=== PATIENT | female | born 1980 | race Caucasian/White ===

== ENCOUNTER 2021-02-08 08:04 | Day surgery (SDC) | payer OTHER ==
[~2021-02-08] VITALS: Ht 175.3 cm; Wt 150.0 kg
[~2021-02-08 08:04] MED LIST: ACYCLOVIR200 MG PO; ADIPEX-P37.5 MG PO; ARNUITY ELLIPT50 MCG IH; CELEBREX200 MG PO; CLARITIN10 M2 PO; DICLOFENAC SODI75 MG PO; DIFLUCAN150 MG PO; FEOSOL325 MG PO; LASIX20 MG PO; SIMETHICONE80 MG PO; VITAMIN C500 M5 PO
[2021-02-08] MEDS ORDERED: IBUPROFEN600 MG PO (08:35)
--- NOTE | 2021-02-08 09:41 | NUR ---
02/08/21 0941 Katiana Mai 8213 PT ARRIVED TO PACU TLAKING TO RN. PT DENIES CONCERNS. PT RESTING IN BED AND PLAN OF CARE DISCUSSED. VSS.
--- NOTE | 2021-02-09 08:15 | OR ---
[facility] [address] [place], [place] [address] Signed DATE OF OPERATION: 02/08/2021 SURGEON: Karen Chew MD PREOPERATIVE DIAGNOSES: 1. Gastroesophageal reflux disease. 2. Nausea. 3. Daily non-steroidal anti-inflammatory drugs use. 4. Maternal cousin with stomach cancer, age 32. 5. Sister with stomach cancer. POSTOPERATIVE DIAGNOSES: 1. Small antral gastric ulcer. 2. Moderate diffuse punctate hemorrhagic gastritis. 3. Small to moderate sized hiatal hernia. PROCEDURE: EGD with CLOtest and biopsies of the antrum and GE junction. ESTIMATED BLOOD LOSS: None. INDICATIONS: Elsie is a 40-year-old obese female, asked to see me for upper endoscopy. 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 She had to have some toe surgery and they apparently discontinued her job. She said it has been very stressful. It made her acid reflux worse and she is not having nausea and bloating. She is quite worried because her maternal cousin of stomach cancer at age 32. Apparently, there was a sister who also had stomach cancer. She seems to use the omeprazole as needed. She spoke of upper endoscopy way back at age 23. In the office, I gave her a pamphlet on upper endoscopy and we looked at that together along with the risks including, but not limited to gas bloating, crampy abdominal pain, bleeding, perforation requiring surgery, and missed diagnosis. She also understands the need for IV conscious sedation. She had expressed understanding and wished to proceed. PROCEDURE NOTE: Elsie was taken into our endoscopy suite and placed supine semi-recumbent position. The posterior oropharynx was anesthetized with lidocaine spray. A bite block was utilized for the case. She was given a total of 8 mg of Versed and 100 mcg of fentanyl to cover the case. The adult gastroscope had been introduced and advanced out into the Electronically Signed By: KAREN CHEW MD 02/09/21 0815 PATIENT NAME: ELSIE ZUNIGA OPERATIVE REPORT DATE OF : 76 REPORT #: [id number] PHYSICIAN: KAREN CHEW MD PCP: GAIL ARCHER REPORT IS CONFIDENTIAL AND NOT TO BE RELEASED WITHOUT AUTHORIZATION [facility] [address] [place], [place] [address] Signed third portion of the duodenum under direct visualization of camera without difficulty. The duodenum and pyloric channel were unremarkable. The stomach showed moderate diffuse hemorrhagic gastritis. She had a small ulcer in the antrum covered with fibrinous exudate. We took a biopsy right next to that for pathologic review. We took an additional biopsy out of the antrum for CLOtest. Upon retroflexion of scope, we can see she has a small to moderate sized hiatal hernia. We tried to measure that, but it was difficult and she started coughing. We had various measurements somewhere between 46 and 38 cm. Again, it does not appear that large visually. She does have some mild disruption to the Z-line. We went ahead and took a biopsy along the edge of that for pathologic review. No distal esophagitis. The middle and upper esophagus were unremarkable. After this, the gas was suctioned out and the gastroscope removed. Elsie tolerated the procedure quite well. RECOMMENDATIONS: Elsie should do her best to discontinue NSAIDs and aspirin for the next 6-8 weeks and use her omeprazole daily. Karen Chew MD [facility]/MODL /[id number] cc: [facility] Karen Chew MD Copies: KAREN CHEW MD ~ Electronically Signed By: KAREN CHEW MD 02/09/21 0815 PATIENT NAME: ELSIE ZUNIGA OPERATIVE REPORT DATE OF : 76 REPORT #: [id number] PHYSICIAN: KAREN CHEW MD PCP: GAIL ARCHER REPORT IS CONFIDENTIAL AND NOT TO BE RELEASED WITHOUT AUTHORIZATION
--- NOTE | 2021-02-10 16:25 | PATH ---
[facility] [address] [place], [place] [address] Signed SPECIMEN(S): A ANTRUM/PYLORUS SPECIMEN(S): B GE JUNCTION SPECIMEN SOURCE: A. ANTRUM/PYLORUS B. GE JUNCTION CLINICAL HISTORY: Reflux; nausea; bloating. Postop diagnosis: Hiatal hernia; small gastric ulcer MICROSCOPIC DESCRIPTION: Histologic sections of all submitted blocks are examined by light microscopy. Specimen A: An H. pylori immunohistochemical stain (with appropriately staining controls) is negative for Helicobacter organisms. These findings, together with the gross examination, support the pathologic diagnosis. FINAL PATHOLOGIC DIAGNOSIS: A. Stomach, antrum/pylorus, biopsy: - Antral mucosa with chronic, active gastritis. - Negative for Helicobacter organisms (HE and IHC). - Negative for dysplasia or malignancy. B. Gastroesophageal junction, biopsy: - Squamous mucosa with focal reactive changes associated with mixed acute and chronic inflammation, suggestive of reflux esophagitis. - Negative for intestinal metaplasia, dysplasia or malignancy. NAL:cml:C2NR GROSS DESCRIPTION: Two specimens are received in two containers, labeled "Blair" A. The specimen, labeled and designated "Trottier, antrum/pylorus biopsy," is received in formalin and consists of one corrigan soft tissue fragment that measures 0.2 cm in greatest dimension. The specimen is entirely submitted in cassette (A1). B. The specimen, labeled and designated "Trottier, GE junction biopsy," is received in formalin and consists of one corrigan soft tissue fragment that measures 0.2 cm in greatest dimension. The specimen is entirely submitted in cassette (B1). VB (under the direct supervision of a pathologist) The Gross Description was prepared using a voice recognition system. The report was reviewed for accuracy; however, sound-alike word errors, addition and/or deletions may occur. If there is any PATIENT NAME: NIKO ZUNIGA PATHOLOGY DATE OF : 76 REPORT #: [id number] PHYSICIAN: VAHE HUDSON PCP: GAIL ARCHER REPORT IS CONFIDENTIAL AND NOT TO BE RELEASED WITHOUT AUTHORIZATION [facility] [address] [place], [place] [address] Signed question about this report, please contact Client Services. PERFORMING LABORATORY: The technical component was performed by [employer] [address] [address] (Chemistry Professor: Avis Alexandre MD; CLIA# [id number]). Professional interpretation was performed by [employer] [facility], [address] [address] (CLIA# [id number]). Diagnostician: Elma Gillespie MD Pathologist Electronically Signed 02/10/2021 Copies: ~ PATIENT NAME: NIKO ZUNIGA PATHOLOGY DATE OF : 76 REPORT #: [id number] PHYSICIAN: VAHE PATHOLOGY PCP: GAIL ARCHER REPORT IS CONFIDENTIAL AND NOT TO BE RELEASED WITHOUT AUTHORIZATION
== END 2021-02-08 11:15 | disposition home or self-care (01) ==
LOC: OPS 08:04 → DS 08:13 → OPS 08:15
PROVIDERS: ATTEND Colon & Rectal Surgery
PROC: 0DB78ZX Excision of Stomach, Pylorus, Via Natural or Artificial Opening Endoscopic, Diagnostic (ICD-10-PCS; 2021-02-08)
PROC: 0DB48ZX Excision of Esophagogastric Junction, Via Natural or Artificial Opening Endoscopic, Diagnostic (ICD-10-PCS; principal; 2021-02-08 08:15)
DX: K29.51 Unspecified chronic gastritis with bleeding (principal); K21.9 Gastro-esophageal reflux disease without esophagitis; K25.9 Gastric ulcer, unspecified as acute or chronic, without hemorrhage or perforation; K44.9 Diaphragmatic hernia without obstruction or gangrene; E66.01 Morbid (severe) obesity due to excess calories; Z68.42 Body mass index [BMI] 45.0-49.9, adult; Z88.0 Allergy status to penicillin; Z88.5 Allergy status to narcotic agent; Z91.040 Latex allergy status
CPT/HCPCS: 84703; 86677; 99153; G0500; J2250; J3010; J7121

== ENCOUNTER 2021-11-04 10:37 | Emergency (ER) | payer OTHER ==
[~2021-11-04] VITALS: Ht 175.3 cm; Wt 149.7 kg
[~2021-11-04 10:37] MED LIST changes: +IBUPROFEN600 MG PO
--- OUTSIDE RECORDS SUMMARY | 2021-11-04 10:42 | XMS ---
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 Benjamin has no Care Guidelines for this patient. Jacklyn VISIT COUNT (12 MO.) 2 [facility] 1 SHARATH Israel TOTAL 3 NOTE: Visits indicate total known visits. ED/UCC VISIT TRACKING (12 MO.) 11/04/2021 10:39 SHARATH Patterson [place] TYPE: Emergency COMPLAINT: - URINATING BLOOD [facility] DIAGNOSES: - Vaginal Bleeding - Polyp of corpus uteri - Abnormal uterine and vaginal bleeding, unspecified - Anemia, unspecified - heavy menstural bleeding 01/12/2021 09:37 [facility] DIAGNOSES: - Abnormal uterine and vaginal bleeding, unspecified - Vaginal Bleeding - Polyp of corpus uteri - heavy menstral bleed INPATIENT VISIT TRACKING (12 MO.) No inpatient visits to display in this time frame [email or web address]
[2021-11-04] MEDS ORDERED: CEPHALEXIN500 MG PO (11:53)
[2021-11-04] MEDS ORDERED: DIFLUCAN200 MG PO (12:47)
== END 2021-11-04 14:23 | disposition home or self-care (01) ==
LOC: ED 10:37
DX: N39.0 Urinary tract infection, site not specified (principal); Z87.891 Personal history of nicotine dependence; Z88.5 Allergy status to narcotic agent; Z88.2 Allergy status to sulfonamides; Z91.040 Latex allergy status; Z79.899 Other long term (current) drug therapy
CPT/HCPCS: 36415; 80048; 81001; 85025; 96374; 96375; 99283-25; J0696; J2405; J7030

== ENCOUNTER 2024-05-15 06:50 | Day surgery (SDC) | payer OTHER ==
[~2024-05-15] VITALS: Ht 175.3 cm; Wt 152.3 kg
[~2024-05-15 06:50] MED LIST changes: -ACYCLOVIR200 MG PO; -ADIPEX-P37.5 MG PO; -ARNUITY ELLIPT50 MCG IH; -CELEBREX200 MG PO; -CLARITIN10 M2 PO; -DICLOFENAC SODI75 MG PO; -DIFLUCAN150 MG PO; -FEOSOL325 MG PO; -IBUPROFEN600 MG PO; -LASIX20 MG PO; +MIDAZOLAM HCL 5 MG/5 ML VIAL IV PRN; -SIMETHICONE80 MG PO; -VITAMIN C500 M5 PO; +fentaNYL citrate 100 MCG/2 ML VIAL IV PRN; +propofoL 200 MG/20 ML VIAL ONE
[2024-05-15] MEDS ORDERED: LACTATED RINGER'S 1,000 ML IV SCH (07:00)
[2024-05-15] MEDS ORDERED: LIDOCAINE HCL 1% 5 ML SDV INJ ONE (07:00)
[2024-05-15] MEDS ORDERED: IBLOOD GLUCOSE TEST STRIP 1 EA TEST VI PRN (07:00)
--- NOTE | 2024-05-15 07:26 | NUR ---
VISIT NOT AVAILABLE FOR VISIT. PROVIDED PRAYER.
[2024-05-15] MEDS ORDERED: propofoL 200 MG/20 ML VIAL ONE (08:03)
--- NOTE | 2024-05-15 08:13 | NUR ---
05/15/24 0813 Monet López 0806-PATIENT ARRIVED TO PACU ON 6L MASK NONAROUSABLE ORAL AIRWAY IN PLACE RR EVEN. LAYING LEFT LATERAL. ABDOMEN SOFT. IVF INFUSING. SR 0807-PATIENT STARTING TO COUGH REACTIVE TO VERBAL STIMULI OPENING EYES REMAINS VERY DROWSY. ORAL AIRWAY REMOVED. 100% 6L MASK RR EVEN 0811-PATIENT COUGHING HOB ELEVATED PATIENT REPORTS "GOTTA POOP" ENCOURAGED TO PASS GAS. PATIENT HAS EYES CLOSED. REPORTS" GIVE THE DR SOME WATER" PATIENT ORIENTED TO PACU. IVF INFUSING. 0813-PATIENT PASSING GAS
[2024-05-15 08:50] VITALS: BP 120/83
--- NOTE | 2024-05-15 12:09 | OR ---
[facility] [address] [place], [place] [address] Signed DATE OF OPERATION: 05/15/2024 SURGEON: Karen Augustine MD PREOPERATIVE DIAGNOSES: 1. Maternal grandfather with colon cancer in his late 80s or early 90s. 2. Internal and external hemorrhoids. 3. Maternal uncle with colon cancer in his early 50s. 4. Questionable personal history of colonic polyps in her 30s. POSTOPERATIVE DIAGNOSES: 1. Moderate external anal skin tags. 2. Minimal internal anal skin tags. PROCEDURE: Colonoscopy without biopsy. ESTIMATED BLOOD LOSS: None. INDICATIONS: Elsie is a 44-year-old morbidly obese female, asked to see me for her colonoscopy. She had a colonoscopy in her 30s while living in [place], [place]. She thinks there were polyps found, but they left them in place. She understands that would be unusual. She talked about internal and external hemorrhoids. She was hoping to have those removed while in [place]. However, she moved away to [place], [place] and therefore, it never materialized. She told me her maternal grandfather had colon cancer somewhere between the age of 88 and 91. Her maternal uncle had colon cancer in his early 50s. She currently has no lower GI complaints. I had given Elsie a booklet on colonoscopy in the office. 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 Consequently, she is familiar with this process. There is risk including, but not limited to gas, bloating, crampy abdominal pain, bleeding, perforation requiring surgery, and missed diagnosis. We also reviewed the written instructions for the bowel prep line by line. Because of her body mass index and a very round full heavy face and sleep apnea, we did ask for monitored anesthesia care with propofol infusion. That proved to be a mark decision. She did need extra propofol during the procedure. She had expressed understanding and wished to proceed. DESCRIPTION OF PROCEDURE: Elsie was taken into our endoscopy suite and placed in the left lateral decubitus Electronically Signed By: KAREN AUGUSTINE MD 05/15/24 1209 PATIENT NAME: ELSIE ZUNIGA OPERATIVE REPORT DATE OF : 76 REPORT #: [id number] PHYSICIAN: KAREN AUGUSTINE MD PCP: AILYN ARCHER REPORT IS CONFIDENTIAL AND NOT TO BE RELEASED WITHOUT AUTHORIZATION [facility] [address] [place], [place] [address] Signed position. She was given IV propofol per our nurse fish header. A digital rectal exam was performed. She had several moderate-sized external anal skin tags. The surrounding skin was quite healthy. Really, no hemorrhoid tissue. She had good sphincter tone. No masses noted internally. The adult colonoscope was introduced and advanced all around under direct visualization of camera. She did require extra propofol and some abdominal compression. They get the scope right down into the cecum itself. Unfortunately, she had liquid pasty and particulate stool. I could not quite suction out completely from the cecum. She could always take small bowel prep in the future. She used a half gallon of polyethylene glycol with Dulcolax tablets on this occasion. The scope was then slowly withdrawn. We took several pictures throughout for photodocumentation. The ileocecal valve was easily evident. We saw no pathology throughout the entire colon. The rectum was unremarkable. Upon retroflexion of scope, she has at least two tiny internal anal skin tags. After this, the gas was suctioned out and the colonoscope was removed. Elsie tolerated the procedure quite well. RECOMMENDATIONS: Elsie should follow up in 5 years for repeat colonoscopy due to her family history. If she wants to consider having her skin tags removed, she can certainly follow up in the office in that regard. Karen Augustine MD [facility]/MODL /[id number] cc: [facility] MD Ailyn Jean-Baptiste Copies: [facility] KAREN AUGUSTINE MD Electronically Signed By: KAREN AUGUSTINE MD 05/15/24 1209 PATIENT NAME: ELSIE ZUNIGA OPERATIVE REPORT DATE OF : 76 REPORT #: [id number] PHYSICIAN: KAREN AUGUSTINE MD PCP: AILYN ARCHER REPORT IS CONFIDENTIAL AND NOT TO BE RELEASED WITHOUT AUTHORIZATION [facility] [address] [place] [address] Signed AILYN ARCHER ~ Electronically Signed By: KAREN AUGUSTINE MD 05/15/24 1209 PATIENT NAME: ELSIE ZUNIGA OPERATIVE REPORT DATE OF : 76 REPORT #: [id number] PHYSICIAN: KAREN AUGUSTINE MD PCP: AILYN ARCHER REPORT IS CONFIDENTIAL AND NOT TO BE RELEASED WITHOUT AUTHORIZATION
== END 2024-05-15 08:55 | disposition home or self-care (01) ==
LOC: DS 06:50 → OPS 06:50 → DS 08:05 → OPS 08:05 → DS 09:00
PROVIDERS: ATTEND Colon & Rectal Surgery
PROC: 0DJD8ZZ Inspection of Lower Intestinal Tract, Via Natural or Artificial Opening Endoscopic (ICD-10-PCS; principal; 2024-05-15)
DX: Z12.11 Encounter for screening for malignant neoplasm of colon (principal); K64.4 Residual hemorrhoidal skin tags; K64.8 Other hemorrhoids; E66.01 Morbid (severe) obesity due to excess calories; G47.30 Sleep apnea, unspecified; K21.9 Gastro-esophageal reflux disease without esophagitis; Z68.43 Body mass index [BMI] 50.0-59.9, adult; Z68.42 Body mass index [BMI] 45.0-49.9, adult
CPT/HCPCS: 00811; J2704; J7121